=== PATIENT | female | born 1960 | race Caucasian/White ===

== ENCOUNTER 2019-04-07 13:02 | Emergency (ER) | payer BC ==
[~2019-04-07] VITALS: Ht 167.6 cm; Wt 63.0 kg
[~2019-04-07 13:02] MED LIST: CYCL10TA10 PO; ESTR1TAB19 PO; HYDR-4383 PO; KRIL500C PO; LACT1CAP65 PO; MULT1TAB74 PO; OSC500T PO; TRAM50TA2 PO; VITA100C5 PO
[2019-04-07 14:39] VITALS: BP 130/76
[2019-04-07] MEDS ORDERED: AMOX-422 PO (14:40)
== END 2019-04-07 14:50 | disposition home or self-care (01) ==
LOC: ER 13:03
DX: S51.831A Puncture wound without foreign body of right forearm, initial encounter (principal); S60.511A Abrasion of right hand, initial encounter; L03.113 Cellulitis of right upper limb; Z90.49 Acquired absence of other specified parts of digestive tract; Z90.710 Acquired absence of both cervix and uterus; Z88.8 Allergy status to other drugs, medicaments and biological substances; Z79.2 Long term (current) use of antibiotics; Z79.899 Other long term (current) drug therapy; W55.01XA Bitten by cat, initial encounter; Y93.89 Activity, other specified; Y92.009 Unspecified place in unspecified non-institutional (private) residence as the place of occurrence of the external cause; Y99.8 Other external cause status
CPT/HCPCS: 99283